=== PATIENT | male | born 1985 | race Two or more races ===

== ENCOUNTER 2024-02-24 10:29 | Emergency (ER) | payer OTHER ==
[~2024-02-24] VITALS: Ht 185.4 cm; Wt 102.0 kg
[2024-02-24 11:09] VITALS: BP 119/75; PULSE 88; RESP 16; TEMP 96.7; O2SAT 95
[2024-02-24] MEDS: ACETAMINOPHEN 500 MG TAB PO ONE (12:08)
[2024-02-24] MEDS ORDERED: ACET-1080 PO (12:08)
== END 2024-02-24 12:18 | disposition home or self-care (01) ==
LOC: ER 10:29
DX: S90.31XA Contusion of right foot, initial encounter (principal); Z88.6 Allergy status to analgesic agent; W18.39XA Other fall on same level, initial encounter; Y93.89 Activity, other specified; Y92.89 Other specified places as the place of occurrence of the external cause; Y99.8 Other external cause status
CPT/HCPCS: 73630

== ENCOUNTER 2024-07-22 08:31 | Emergency (ER) | payer OTHER ==
[~2024-07-22] VITALS: Ht 185.4 cm; Wt 103.2 kg
[~2024-07-22 08:31] MED LIST: ACET-1080 PO
[2024-07-22 09:01] VITALS: BP 110/83; PULSE 71; RESP 20; TEMP 97.9; O2SAT 100
[2024-07-22 09:37] LABS: Hematocrit 45.3 % (41.0-53.0); Hemoglobin 14.5 g/dL (13.5-17.5); Mean Corpuscular Hemoglobin 28.9 pg (28.0-32.0); Mean Corpuscular Volume 90.4 fL (80.0-100.0); Platelet Count (auto) 204 10^3/uL (140-450); Red Blood Cells 5.01 10^6/uL (4.5-5.90); Red Cell Distribution Width 12.1 % (11.8-14.3); White Blood Cell 3.7 10^3/uL (4.4-10.8)
[2024-07-22 09:46] LABS: Anion Gap 5 (5-15); Basophils % (manual) 0 (0.0-2.0); Blast Cells 0; Carbon Dioxide 29 mmol/L (20-31); Chloride 107 mmol/L (98-107); Metamyelocytes % 0; Myelocytes % 0; Potassium 4.6 mmol/L (3.5-5.1); Promyelocytes % 0; Sodium 141 mmol/L (136-145)
[2024-07-22 09:52] LABS: BUN/Creatinine Ratio 6.6 (10.0-20.0); Glucose 102 mg/dL (74-106)
--- NOTE | 2024-07-22 09:55 | DVH ---
EXAM: CT HEAD WITHOUT CONTRAST HISTORY: ROBLES COMPARISON: None TECHNIQUE: Axial images of the head were obtained and reformatted in coronal and sagittal planes. All CT scans at this medical facility are performed using dose modulation techniques as appropriate t o a performed exam including the following: Automated exposure control was utilized; adjustment of th e MA and/or KV according to patient size; and use of iterative reconstruction technique. CT Dose: CTDI volume is 59.65 mGy. Dose-length product is 1056.16 mGy*cm FINDINGS: There is no evidence of acute intracranial hemorrhage, mass, mass effect midline shift. There is no h ydrocephalus or extra-axial fluid collection. Incidentally noted is cavum septum pellucidum. Tejada-whi te matter differentiation is maintained. The visualized paranasal sinuses and mastoid air cells are clear. The calvarium is intact. IMPRESSION: 1. No acute intracranial process. HS:Y
[2024-07-22 10:02] LABS: Blood Urea Nitrogen 8 mg/dL (9-23)
--- NOTE | 2024-07-22 11:10 | ED.PDOC ---
HPI (NEURO) HPI Comments Pleasant 38-year-old gentleman with no pertinent MHx presents with a chief complaint of an atraumatic nonradiating left temporal headache for the last couple of days. Pain rated as moderate and described as throbbing pressure. No associated signs and symptoms. Able to get temporary relief with ghyo-bfd-cyaxlom Tylenol. Denies persistent nausea Denies vomiting Denies thunderclap headache Denies photophobia, phonophobia Denies head trauma around the time headache started Denies taking any blood thinner medication Denies vision/hearing changes Denies focal loss of strength/sensation or changes in speech Chief Complaint: Headache Time Seen by MD: 09:01 Primary Care Provider: NANOOM Reviewed Notes: Nurses Notes, Medications, Allergies Information Source: Patient Mode of Arrival: Ambulatory Past Medical History PAST MEDICAL HISTORY: Denies Surgical History: Denies all surgeries Family History Family History: Reviewed,noncontributory to illness Social History Smoker: Non-Smoker Alcohol: Denies ETOH Use Drugs: Denies Drug Use Lives In: Home All Other Systems: Reviewed and Negative (Per HPI) Physical Exam General Appearance: No Apparent Distress, Normal HEENT: Head (Normocephalic atraumatic) Neck: Full Range of Motion, Non-Tender, Normal, Normal Inspection Respiratory: Chest Non-Tender, Lungs Clear, No Accessory Muscle Use, No Respiratory Distress, Normal Breath Sounds Cardiovascular: No Edema, No JVD, No Murmur, No Gallop, Normal Peripheral Pulses, Regular Rate/Rhythm Breast Exam: Deferred Gastrointestinal: No Organomegaly, Non Tender, No Pulsatile Mass, Normal Bowel Sounds, Soft Genitalia: Deferred Pelvic: Deferred Rectal: Deferred Extremities: No calf tenderness, Normal capillary refill, Normal inspection, Normal range of motion, Non-tender, No pedal edema Musculoskeletal : Apperance: Normal Neurologic: Alert, straddle buggy operator II-XII nml as Tested, No Motor Deficits, Normal Affect, Normal Mood, No Sensory Deficits Cerebellar Function: Normal Reflexes: Normal Skin: Dry, Normal Color, Warm Lymphatic: No Adenopathy Was a procedure done? Was a procedure done?: No Differential Diagnosis (SZ) Seizure: Other Headache: Cluster, Migraine X-Ray, Labs, Meds, VS Vital Signs Date Time Temp Pulse Resp B/P (MAP) Pulse Ox O2 Delivery O2 Flow Rate FiO2 07/22/24 09:01 71 20 100 Room Air 07/22/24 09:01 97.9 71 20 110/83 (92) 100 97.9 07/22/24 08:45 97.9 71 20 110/83 (92) 100 97.9 Lab Test 07/22/24 09:25 Range/Units White Blood Count 3.7 L 4.4-10.8 10^3/uL Red Blood Count 5.01 4.5-5.90 10^6/uL Hemoglobin 14.5 13.5-17.5 g/dL Hematocrit 45.3 41.0-53.0 % Mean Corpuscular Volume 90.4 80.0-100.0 fL Mean Corpuscular Hemoglobin 28.9 28.0-32.0 pg Mean Corpuscular Hemoglobin Concent 32.0 32.0-36.0 g/dL Red Cell Distribution Width 12.1 11.8-14.3 % Platelet Count 204 140-450 10^3/uL Mean Platelet Volume 8.6 6.9-10.8 fL Neutrophils (%) (Auto) 37.0-80.0 % Lymphocytes (%) (Auto) 10.0-50.0 % Monocytes (%) (Auto) 0.0-12.0 % Basophils (%) (Auto) 0.0-2.0 % Neutrophils # (Auto) 1.6-8.6 10 ^3/uL Lymphocytes # (Auto) 0.4-5.4 10 ^3/uL Monocytes # (Auto) 0-1.3 10 ^3/uL Differential Total Cells Counted 100.0 100 Neutrophils % (Manual) 31 L 37.0-80.0 Band Neutrophils % (Manual) 1 Lymphocytes % (Manual) 55 H 10.0-50.0 Monocytes % (Manual) 8 0-12 Eosinophils % (Manual) 2 0-7 Basophils % (Manual) 0 0.0-2.0 Metamyelocytes % (manual) 0 Myelocytes % (Manual) 0 Promyelocytes % (Manual) 0 Blast Cells % (Manual) 0 Reactive Lymphocytes 3 Platelet Estimate Adequate Red Blood Cell Morphology Normal Sodium Level 141 136-145 mmol/L Potassium Level 4.6 3.5-5.1 mmol/L Chloride Level 107 98-107 mmol/L Carbon Dioxide Level 29 20-31 mmol/L Anion Gap 5 5-15 Blood Urea Nitrogen 8 L 9-23 mg/dL Creatinine 1.21 0.700-1.30 mg/dL Glomerular Filtration Rate Calc 78 >90 mL/min BUN/Creatinine Ratio 6.6 L 10.0-20.0 Serum Glucose 102 74-106 mg/dL Calcium Level 10.0 8.7-10.4 mg/dL PATIENT: SHAKIRA LI GACCT: [id number]: [id number] : 1985 LOC: ER ROOM / BED: / AGE / SEX: 38 / M ADM STATUS: REG ER SERVICE 4 ORDERING PHYSICIAN: ORACIO SELLERS NP PROCEDURE(s): HWOCT - HEAD WITHOUT CONTRAST REASON: ROBLES ORDER NUMBER(s): [id number], ACCESSION NUMBER(s): [id number] EXAM: CT HEAD WITHOUT CONTRAST HISTORY: ROBLES COMPARISON: None TECHNIQUE: Axial images of the head were obtained and reformatted in coronal and sagittal planes. All CT scans at this medical facility are performed using dose modulation tech niques as appropriate to a performed exam including the following: Automated exposure control was utilized; adjustment of the MA and/or KV according to patient size; and use of iterative reconstruction technique. CT Dose: CTDI volume is 59.65 mGy. Dose-length product is 1056.16 mGy*cm FINDINGS: There is no evidence of acute intracranial hemorrhage, mass, mass effect midline shift. There is no hydrocephalus or extra-axial fluid collection. Incidentally noted is cavum septum pellucidum. Tejada-white matter differentiation is maintained. The visualized paranasal sinuses and mastoid air cells are clear. The calvarium is intact. IMPRESSION: 1. No acute intracranial process. HS:Y ATED BY: RSOE RIOS MD DICTATED DATE/TIME: 07/22/24952 SIGNED BY: ROSE RIOS MD SIGNED DATE/TIME: 07/22/24952 CC: X-Ray, Labs, Meds, VS Comment The patients history and physical exam are consistent with a benign headache. Likely tension headache Low concern for meningitis as there are no signs of fever, altered mentation nor neck stiffness. Low concern for subarachnoid hemorrhage there are no signs of a thunderclap headache Low concern for subdural hematoma and intracranial hemorrhage as there is no history of trauma, progressively worsening headache and neuroexam is unremarkable. Low suspicion for brain tumor as neuroexam is unremarkable. No nausea vomiting. No morning or nocturnal headache. No suspicion for temporal arteritis as there are no signs of fever, muscle weakness, jaw claudication, no transient visual loss. While in the ED, the patient declined treatment Patient was overall well-appearing and hemodynamically stable in the ED. They were able to ambulate and continued to have a nonfocal exam in the emergency department. Discussed continued symptomatic treatment at home. Recommended follow up with PCP. Return precautions to the ED discussed Counseled to start headache diary Recommended headache elimination diet Avoid prolonged periods of fasting Drink plenty of water Exercise daily, limit screen time Aim to sleep 8 to 9 hours per night, practice good hygiene ED precautions given Time of 1ST Reevaluation: 11:00 Reevaluation 1ST: Improved Patient Education/Counseling: Diagnosis, Treatment Family Education/Counseling: Diagnosis, Treatment Departure 1 Departure Time of Disposition: 11:09 Impression: Primary Impression: Headache Qualified Codes: R51.9 - Headache, unspecified Additional Impression: Left temporal headache Disposition: 01 HOME / SELF CARE / HOMELESS Condition: Stable Critical Care Note Critical Care Time?: No Stability Stability form required: No Heart Score Heart Score: Heart Score Response (Comments) Value History N/A 0 EKG N/A 0 Age N/A 0 Risk Factors N/A 0 Troponin N/A 0 Total 0 ORACIO SELLERS NP Jul 22, 2024 11:10
[2024-07-22 11:16] LABS: Band Neutrophils % (manual) 1; Eosinophils % (manual) 2 (0-7); Lymphocytes % (manual) 55 (10.0-50.0); Monocytes % (manual) 8 (0-12); Platelet Estimate Adequate; RBC Morphology Normal; Reactive Lymphocytes 3
== END 2024-07-22 11:16 | disposition home or self-care (01) ==
LOC: ER 08:31
DX: R51.9 Headache, unspecified (principal)
CPT/HCPCS: 36415; 70450; 80048; 85007; 85027

== ENCOUNTER 2025-02-11 10:38 | Emergency (ER) | payer OTHER ==
[~2025-02-11] VITALS: Ht 185.4 cm; Wt 101.9 kg
[2025-02-11 10:40] VITALS: BP 129/88; PULSE 90; RESP 18; TEMP 97.9; O2SAT 96
--- NOTE | 2025-02-11 11:43 | ED.PDOC ---
General HPI Comments 39-year-old male presents to the ER with prior MHx of asthma and the chief complaint of . Patient reports the his fiancee cheating on him for one month in his worried about having sexually transmitted disease. Patient came in today to get tested to see if he has any infections. Patient notes on having STDs in the past but was treated for it. Denies any other symptoms at this time. Color Started Sexual activity Previous STDs Sexual protection Denies fevers chills night sweats Denies pelvic pain Denies nausea vomiting diarrhea Denies dysuria urgency frequency Denies history of UTI Denies blood in the urine or semen Denies recent instruments/toys and urethra Denies current tobacco use Denies family history of prostate issues Chief Complaint: Urinary Time Seen by MD: 11:20 Primary Care Provider: VIOLETA Reviewed notes: Nurses Notes, Medications, Allergies Allergies: Coded Allergies: Ibuprofen (Verified Allergy, Unknown, 02/24/24) Home Meds Active Scripts Acetaminophen (Tylenol 8 Hour Arthritis) 650 Mg Tab, 650 MG PO TID, #30 TAB Prov:LAYLA ALICIA 02/24/24 Information Source: Patient Mode of Arrival: Ambulatory Severity: Moderate Timing: Came on: Suddenly Duration: Since onset Prehospital treatment: None Onset: Following sexual contact Symptoms: None History of: STD, Sexual activity Location: None associated signs and symptoms: None Past Medical History PAST MEDICAL HISTORY: Denies Surgical History: Denies all surgeries Family History Family History: Reviewed,noncontributory to illness, Unknown Social History Smoker: Non-Smoker Alcohol: Denies ETOH Use Drugs: Denies Drug Use Lives In: Home Constitutional: denies: chills, diaphoresis, fatigue, fever, malaise, sweats, weakness, others EENTM: denies: blurred vision, double vision, ear bleeding, ear discharge, ear drainage, ear pain, ear ringing, eye pain, eye redness, hearing loss, mouth pain, mouth swelling, nasal discharge, nose bleeding, nose congestion, nose pain, photophobia, tearing, throat pain, throat swelling, voice changes, others Respiratory: denies: cough, hemoptysis, orthopnea, SOB at rest, shortness of breath, SOB with excertion, stridor, wheezing, others Cardiovascular: denies: chest pain, dizzy spells, diaphoresis, Dyspnea on exertion, edema, irregular heart beat, left arm pain, lightheadedness, palpitations, PND, syncope, others Gastrointestinal: denies: abdomen distended, abdominal pain, blood streaked bowels, constipated, diarrhea, dysphagia, difficulty swallowing, hematemesis, melena, nausea, poor appetite, poor fluid intake, rectal bleeding, rectal pain, vomiting, others Genitourinary: denies: burning, dysuria, flank pain, frequency, hematuria, incontinence, penile discharge, penile sore, pain, testicle pain, testicle swelling, urgency, others Neurological: denies: dizziness, fainting, headache, left sided numbness, left sided weakness, numbness, paresthesia, pre-existing deficit, right sided numbnes s, right sided weakness, seizure, speech problems, tingling, tremors, weakness, others Musculoskeletal: denies: back pain, gout, joint pain, joint swelling, muscle pain, muscle stiffness, neck pain, others Integumetry: denies: bruises, change in color, change in hair/nails, dryness, laceration, lesions, lumps, rash, wounds, others Allergic/Immunocompromised: denies: Difficulty Healing, Frequent Infections, Hives, Itching, others Hematologic/Lymphatic: denies: anemia, blood clots, easy bleeding, easy bruising, swollen glands, others Endocrine: denies: excessive hunger, excessive sweating, excessive thirst, excessive urination, flushing, intolerance to cold, intolerance to heat, unexplained weight gain, unexplained weight loss, others Psychiatric: denies: anxiety, bipolar disorder, depression, hopeless, panic disorder, schizophrenia, sleepless, suicidal, others All Other Systems: Reviewed and Negative Physical Exam Exam Comments Normocephalic General Appearance: No Apparent Distress, Normal HEENT: Normal ENT Inspection, Pharynx Normal, TMs Normal Neck: Full Range of Motion, Non-Tender, Normal, Normal Inspection Respiratory: Chest Non-Tender, Lungs Clear, No Accessory Muscle Use, No Respiratory Distress, Normal Breath Sounds Cardiovascular: No Edema, No JVD, No Murmur, No Gallop, Normal Peripheral Pulses, Regular Rate/Rhythm Breast Exam: Deferred Gastrointestinal: No Organomegaly, Non Tender, No Pulsatile Mass, Normal Bowel Sounds, Soft Genitalia: Deferred Pelvic: Deferred Rectal: Deferred Extremities: No calf tenderness, Normal capillary refill, Normal inspection, Normal range of motion, Non-tender, No pedal edema Musculoskeletal : Apperance: Normal Neurologic: Alert, ob/gyn II-XII nml as Tested, No Motor Deficits, Normal Affect, Normal Mood, No Sensory Deficits Cerebellar Function: Normal Reflexes: Normal Skin: Dry, Normal Color, Warm Lymphatic: No Adenopathy Was a procedure done? Was a procedure done?: No Differential Diagnosis Kidney stone (Female): N/A Kidney stone (Male): N/A Penile/Scrotal: N/A Urinary Problem (Male): N/A Urinary Problem (Female): N/A X-Ray, Labs, Meds, VS Vital Signs Date Time Temp Pulse Resp B/P (MAP) Pulse Ox O2 Delivery O2 Flow Rate FiO2 02/11/25 10:40 97.9 90 18 129/88 96 97.9 X-Ray, Labs, Meds, VS Comment 39-year-old male presents to the ER with prior MHx of asthma and the chief complaint of . Patient arrives alert and oriented, ABC's intact, afebrile, vital signs stable, saturating well in room air Peripheral IV insertion+ labs were ordered. VDRL serum, HIV one and two, chlamydia tests Urinalysis was ordered to rule out UTI or hematuria. Additional MDM Review of External, Non-ED records: External records reviewed. Discussion with independent historian (EMS, family) history obtained from the p atient/parents (if applicable) at bedside Chronic conditions affecting care: None Social determinants of health affecting care: None Consideration of admission (observation or admission): I considered escalation of care to admission for this patient, however given the reassuring workup, the patient is safe for outpatient management. Discussion with the Radiology: No Tests considered but not performed: Prescription medication considered but not given: 12 lead EKG interpretation: Time of 1ST Reevaluation: 11:50 Reevaluation 1ST: Unchanged Patient Education/Counseling: Diagnosis, Treatment, Prognosis Family Education/Counseling: No Family Present SEPSIS Sepsis Screen Date sepsis recognized/suspect: Feb 11, 2025 Time Sepsis recognized/suspect: 1041 Recent Procedure: No On Antibiotic Therapy: No Respiratory Rate >20: No Heart Rate >90: No Temp<36 C (96.8 F) or >38.3 C: No SBP <90 or MAP <65 mmHG: No New Acute Mental Status Change: No Is the patient on CPAP, BIPAP,: No Physician Orders Urinalysis (02/11/25 10:45) Chlamydia/Gc Amplification (02/11/25 11:29) Hiv 1&2 Antibody (02/11/25 11:29) Vital Signs Date Time Temp Pulse Resp B/P (MAP) Pulse Ox O2 Delivery O2 Flow Rate FiO2 02/11/25 10:40 97.9 90 18 129/88 96 97.9 Departure 1 Departure Time of Disposition: 11:54 Impression: Primary Impression: Possible exposure to STD Disposition: 07 LEFT AWOL/ELOPED Condition: Stable Discharged With: Self Critical Care Note Critical Care Time?: No Stability Stability form required: No Heart Score Heart Score: Heart Score Response (Comments) Value History N/A 0 EKG N/A 0 Age N/A 0 Risk Factors N/A 0 Troponin N/A 0 Total 0 I personally scribed for ORACIO SELLERS NP ([email or web address]) on 02/11/25 at 11:55. Electronically submitted by Jaylen Almeida ([email or web address]). ORACIO SELLERS NP Feb 11, 2025 11:43
[2025-02-11 12:41] LABS: Urine Protein, UAD TRACE (Negative)
[2025-02-13 06:07] LABS: Chlamydia Trachomatis, NAA Negative (Negative); Neisseria gonorrhoeae, NAA Negative (Negative)
== END 2025-02-11 13:21 | disposition home or self-care (01) ==
LOC: ER 10:42
DX: Z20.2 Contact with and (suspected) exposure to infections with a predominantly sexual mode of transmission (principal); J45.909 Unspecified asthma, uncomplicated; Z79.899 Other long term (current) drug therapy; Z88.6 Allergy status to analgesic agent; Z86.2 Personal history of diseases of the blood and blood-forming organs and certain disorders involving the immune mechanism
CPT/HCPCS: 81001; 86703